=== PATIENT | male | born 1995 | race Caucasian/White ===

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

== ENCOUNTER 2019-02-20 19:21 | Emergency (ER) | payer BC ==
[2019-02-20] MEDS ORDERED: Lidocaine 1% w/Epinephrine 1:100K 30 ML VIAL ONE (19:48)
[2019-02-20] MEDS ORDERED: Adacel (T-DAP) 0.5 ML SYRINGE ONE (20:19)
== END 2019-02-20 20:40 | disposition home or self-care (01) ==
LOC: NAV ERS 19:21
DX: L03.113 Cellulitis of right upper limb (principal); L02.413 Cutaneous abscess of right upper limb; J45.909 Unspecified asthma, uncomplicated; F17.220 Nicotine dependence, chewing tobacco, uncomplicated; Z23 Encounter for immunization
CPT/HCPCS: 10060; 90471; 90715; J2001

== ENCOUNTER 2024-06-03 17:53 | Emergency (ER) | payer SELFPAY ==
[2024-06-03] MEDS ORDERED: Morphine 4 MG/ML VIAL ONE (18:24)
[2024-06-03] MEDS ORDERED: Boostrix 0.5 ML (Tdap) VIAL (>/=7 yrs of age) ONE (18:25)
[2024-06-03] MEDS ORDERED: Morphine 2 MG/ML VIAL ONE (18:25)
== END 2024-06-03 19:35 | disposition home or self-care (01) ==
LOC: NAV ERS 17:53
DX: S02.2XXA Fracture of nasal bones, initial encounter for closed fracture (principal); F17.210 Nicotine dependence, cigarettes, uncomplicated; W55.22XA Struck by cow, initial encounter; Y93.89 Activity, other specified; Y92.89 Other specified places as the place of occurrence of the external cause; Z23 Encounter for immunization; Z79.899 Other long term (current) drug therapy
CPT/HCPCS: 70450; 70486; 90471; 90715; 96372; J2270; J2272